=== PATIENT | male | born 1950 | race Caucasian/White ===

== ENCOUNTER 2017-07-02 14:17 | Inpatient (IN) | payer OTHER ==
[2017-07-02] MEDS ORDERED: NA CHLORIDE 0.9% 1,000 ML ONE (14:57)
--- NOTE | 2017-07-02 15:00 | RAD REPORT ---
EXAM DESCRIPTION: CT - Head Brain Wo Cont - 07/02/2017 2:47 pm CLINICAL HISTORY: Alteration of consciousness/ unresponsive COMPARISON: None TECHNIQUE: Computed axial tomography of the head was obtained. IV contrast was not requested. All CT scans are performed using dose optimization technique as appropriate and may include automated exposure control or mA/KV adjustment according to patient size. FINDINGS: An intracranial bleed is not seen . The ventricles are normal in caliber. No extra-axial fluid collection is noted. An 11 millimeter low-density area is present within the rig ht basal ganglia. Mild low-density areas within periventricular and deep white matter likely represen t ischemic changes secondary to small vessel disease Fluid within the sinuses/ mastoids is not seen. IMPRESSION: 11 millimeter low-density area within the right basal ganglia likely represents an infar ct. The age is indeterminate. MRI is recommended
[2017-07-02 15:58] LABS: Absolute Lymphocytes (CBC) 0.6 K/uL (0.7-4.9); Absolute Monocytes 1.8 K/uL (0.1-1.3); Absolute Neutrophil 11.9 K/uL (1.8-8.0); Basophils % 0.1 % (0-1.3); Hematocrit 39.9 % (39.6-49.0); Lymphocytes % 4.4 % (15.3-44.8); MCH 29.5 pg (27.0-35.0); MCV 87.9 fL (80-100); MPV 8.5 fL (7.6-11.3); Monocytes % 12.6 % (3.3-12.3); RBC Red Blood Cell Count 4.54 M/uL (4.33-5.43)
[2017-07-02 16:08] LABS: Bicarbonate 23 mEq/L (21-31); Glucose Level 156 mg/dL (65-120); Potassium 3.5 mEq/L (3.6-5.0); Sodium Level 135 mEq/L (135-145)
[2017-07-02 16:19] LABS: ALT/SGPT 66 IU/L (10-60); AST/SGOT 251 IU/L (10-42); Albumin 3.7 g/dL (3.2-5.5); Alkaline Phosphatase 75 IU/L (42-121); BUN Blood Urea Nitrogen 47 mg/dL (6-20); Bilirubin Direct 0.2 mg/dL (0-0.2); Bilirubin Total 0.9 mg/dL (0.3-1.2); Protein, Total 7.3 g/dL (6.0-8.3)
[2017-07-02 16:31] LABS: Urine Blood 3+ (NEG); Urine Glucose 2+ (NEG); Urine Protein 3+ (NEG); Urine Specific Gravity >1.030 (1.005-1.030)
[2017-07-02 16:38] LABS: Barbiturates NEGATIVE; Benzodiazepines NEGATIVE; Cocaine NEGATIVE; METHAMPHETAM NEGATIVE; Opiates NEGATIVE; Phencyclidine NEGATIVE; THC Cannibis POSITIVE
--- NOTE | 2017-07-02 17:23 | RAD REPORT ---
EXAM DESCRIPTION: MRI - Brain Wo Cont - 07/02/2017 5:17 pm CLINICAL HISTORY: CVA COMPARISON: 07/02/2017 CT head TECHNIQUE: Multi-sequence, multiplanar MR imaging of the brain was performed without contrast. FINDINGS: No intracranial hemorrhage, hydrocephalus or extra-axial fluid collections.Mild to moderat e confluent T2/FLAIR hyperintensity in the periventricular and deep white matter is present compatibl e with chronic microvascular ischemic changes. No edema or shift of midline structures. No findings t o suspect brain mass. DWI is negative for acute CVA. Midline structures are normally formed. Mastoid air cells and paranasal sinuses are clear. IMPRESSION: Negative for acute CVA or other acute intracranial process.
[2017-07-02 17:29] LABS: Alcohol Serum/Plasma < 10 mg/dl
[2017-07-02 17:32] LABS: Creatine Phosphokinase 8290 IU/L (22-269)
[2017-07-02] MEDS ORDERED: NA CHLORIDE 0.9% 2,000 ML ONE (17:41)
--- NOTE | 2017-07-02 17:42 | ER ---
Nurse's Notes [facility] Name: Carlos Joseph Age: 67 yrs Sex: Male : 1950 Arrival Date: 07/02/2017 Time: 14:18 Bed 8 Private MD: Diagnosis: Altered mental status, unspecified;Rhabdomyolysis;Dehydration;Hypoglycemia, unspecified Presentation: 07/02 14:19 Presenting complaint: EMS states: Found unresponsive in boat parked behind abandoned grocery store. BGL 35, improved to 230 after 20gm dextrose. AOx2. VS WNL. 22g RIGHT FA. Transition of care: patient was not received from another setting of care. Onset of symptoms is unknown. Care prior to arrival: Medication(s) given: Dextrose 20G IV initiated. 22 GA, in the right forearm, Glucose check 35, 230. 14:19 Method Of Arrival: EMS: [facility] 14:19 Acuity: LEONIDAS 2 hb Triage Assessment: 14:20 General: Appears in no apparent distress. ill, Behavior is drowsy, flat. Pain: Denies hb pain. EENT: No signs and/or symptoms were reported regarding the EENT system. Neuro: Level of Consciousness is obeys commands, lethargic, Oriented to person. Cardiovascular: Heart tones S1 S2 present Capillary refill < 3 seconds Patient's skin is warm and dry. Respiratory: Airway is patent Trachea midline Respiratory effort is even, unlabored, Respiratory pattern is regular, symmetrical, Breath sounds are clear bilaterally. GI: No signs and/or symptoms were reported involving the gastrointestinal system. Abdomen is non-distended, Bowel sounds present X 4 quads. Abd is soft and non tender X 4 quads. : No signs and/or symptoms were reported regarding the genitourinary system. Derm: Skin is thin, with poor turgor Skin is dry, Skin is pink, insect bites to face and extremities, sound to right hand, wound to left alvarez. Musculoskeletal: No signs and/or symptoms reported regarding the musculoskeletal system. Historical: - Allergies: 14:24 No Known Allergies; hb - Immunization history:: Adult Immunizations unknown. - Social history:: Smoking status: unknown. Screenin:29 Abuse screen: Denies threats or abuse. Denies injuries from another. Nutritional sv screening: No deficits noted. Tuberculosis screening: No symptoms or risk factors identified. Fall Risk No fall in past 12 months (0 pts). No secondary diagnosis (0 pts). IV access (20 points). Ambulatory Aid- None/Bed Rest/Nurse Assist (0 pts). Gait- Normal/Bed Rest/Wheelchair (0 pts) Mental Status- Oriented to own ability (0 pts). Total Mercedes Fall Scale indicates No Risk (0-24 pts). 21:13 The patient has not been NPO before screening. The patient is alert, able to follow bs1 commands. The patient does not exhibit slurred or garbled speech The patient is not exhibiting difficulty speaking. The patient does not exhibit difficulty understanding words. The patient is able to swallow own secretions with no drooling or need for suction. Patient tolerated one teaspoon of water. No drooling, immediate coughing, gurgling, or clearing of the throat was noted. The patient tolerated 90mL of water. No drooling, immediate coughing, gurgling, or clearing of the throat was noted. Patient was given orange juice (118)ml , patient noted to cough but was able to swallow the juice. Patient states "My mouth is so dry, I have not drank anything in over 25 hours." The patient passed the bedside swallow screening. Oral medications may be given as ordered. Contact Physician for further diet orders. Assessment: 14:30 General: see triage assessment. hb 15:30 Reassessment: Lab at bedside obtaining blood. sv 15:58 General: Appears in no apparent distress. uncomfortable, slender, Behavior is calm, sv cooperative, drowsy, Pt hallucinating. Pt seeing people coming out of the curtain talking to him.. Pain: Complains of pain in right leg and left leg Pain currently is 5 out of 10 on a pain scale. Pain began 1 day ago. Is intermittent. Neuro: Level of Consciousness is awake, alert, obeys commands, with verbal stimuli. Oriented to person, place, time, situation, Moves all extremities. Speech is normal, Facial symmetry appears normal, Reports photophobia weakness in right leg and left leg. Cardiovascular: Patient's skin is warm and dry. Respiratory: Respiratory effort is even, unlabored, Respiratory pattern is regular, symmetrical. Derm: Skin is pale. Musculoskeletal: Reports weakness in right leg and left leg. 16:15 Reassessment: Patient appears in no apparent distress at this time. Patient and/or sv family updated on plan of care and expected duration. Pain level reassessed. Pt hallucinating, stating that he keeps seeing people come in and out of his room. 17:49 Reassessment: Patient appears in no apparent distress at this time. Patient and/or sv family updated on plan of care and expected duration. Pain level reassessed. Patient is alert, oriented x 3, equal unlabored respirations, skin warm/dry/pink. Pt continues to hallucinate. Pt stated that I needed to get the ice cups that were above my head. Reoriented pt to surroundings. 18:18 Reassessment: Patient appears in no apparent distress at this time. Patient and/or sv family updated on plan of care and expected duration. Pain level reassessed. Patient is alert, oriented x 3, equal unlabored respirations, skin warm/dry/pink. 19:15 Reassessment: Patient appears in no apparent distress at this time. Patient and/or bs1 family updated on plan of care and expected duration. Pain level reassessed. Patient is alert, oriented x 3, equal unlabored respirations, skin warm/dry/pink. report received from JAE Corrigan. 20:37 Reassessment: Patient back from MRI, Nurse rechecked BG, 61, orange juice given, bs1 rechecked at 2056 came up to 97. 21:25 Reassessment: Report given to JAE Torrez. bs1 Vital Signs: 14:22 BP 144 / 69; Pulse 88; Resp 18; Temp 98; Pulse Ox 100% on R/A; Pain 0/10; hb 15:08 BP 147 / 68; Pulse 71; Resp 18; Pulse Ox 97% ; sv 16:02 BP 143 / 58; Pulse 77; Resp 19; Pulse Ox 100% on R/A; hb 17:18 BP 160 / 83; Pulse 74; Resp 17; Pulse Ox 100% on R/A; hb 18:18 BP 139 / 64; Pulse 75; Resp 20; Pulse Ox 99% ; sv 18:32 BP 139 / 82; Pulse 74; Resp 18; Pulse Ox 96% ; sv 20:30 BP 141 / 72; Pulse 69; Resp 17; Pulse Ox 95% on R/A; Pain 0/10; bs1 ED Course: 14:18 Patient arrived in ED. ss 14:19 Maintain EMS IV. Dressing intact. Site clean \\T\\ dry. Gauge \\T\\ site: 22G R FA. sv 14:22 Triage completed. hb 14:22 EKG done, by electrical tech/project manager. reviewed by Jose FINCH. at1 14:22 Arm band placed on left wrist. hb 14:25 Jose Nieto PA is PHCP. jr8 14:25 Rich Berkowitz MD is Attending Physician. jr8 14:30 raw material handler on. Pulse ox on. NIBP on. sv 14:47 CT Head Brain wo Cont In Process Unspecified. EDMS 14:51 Meenu Luna, RN is Primary Nurse. sv 15:00 Inserted saline lock: 22 gauge in left antecubital area, using aseptic technique. jb1 15:29 Patient has correct armband on for positive identification. Placed in gown. Bed in low sv position. Call light in reach. 16:37 Patient moved to MRI via stretcher. nj 17:17 MRI - Brain Wo Cont In Process Unspecified. EDMS 17:19 Patient moved back from MRI. nj 17:41 Loren Tello MD is Hospitalizing Provider. jr8 18:07 X-ray completed. Portable x-ray completed in exam room. Patient tolerated procedure ml well. 19:13 Report given to Casa ROWE and Kierra ROWE. sv 19:16 Primary Nurse role handed off by Meenu Luna, RN sv 19:25 Ultrasound completed. cy 19:26 Patient moved to MRI via stretcher. nj 19:43 Luisa Chau, JAE is Primary Nurse. bs1 21:07 No provider procedures requiring assistance completed. Patient admitted, IV remains in bs1 place. intact. Administered Medications: 15:07 Drug: NS 0.9% 1000 ml Route: IV; Rate: 1000 ml; Site: left forearm; sv 16:00 Follow up: Response: No adverse reaction; IV Status: Completed infusion; IV Intake: sv 1000ml 17:49 Follow up: Response: No adverse reaction; IV Status: Completed infusion; IV Intake: sv 1000ml 17:49 Drug: NS 0.9% 1000 ml Route: IV; Rate: 1000 ml; Site: right forearm; sv 21:08 Follow up: IV Status: Completed infusion bs1 18:30 Drug: D50W 50 ml Route: IVP; Site: right forearm; sv 18:59 Follow up: Response: No adverse reaction; Blood sugar is elevated sv 18:31 Not Given (order changed): NS 0.9% 1000 ml IV at 125 ml/hr continuous sv 19:40 Drug: D5-1/2 NS 1000 ml Route: IV; Rate: 150 ml/hr; Site: left antecubital; bs1 21:07 Follow up: IV Status: Infusion continued upon admission bs1 Point of Care Testing: Blood Glucose: 14:20 Blood Glucose: 137 mg/dL; ss 15:57 Blood Glucose: 128 mg/dL; sv 18:20 Blood Glucose: 45 mg/dL; sv 19:00 Blood Glucose: 150 mg/dL; sv Ranges: Intake: 16:00 IV: 1000ml; Total: 1000ml. sv 17:49 IV: 1000ml; Total: 2000ml. sv Output: 16:23 Urine: 200ml (Voided); Total: 200ml. sv Outcome: 17:41 Decision to Hospitalize by Provider. jr8 21:10 Condition: stable bs1 21:23 Admitted to Med/surg accompanied by tech, via stretcher, room 232, with chart, Report bs1 called to JAE Torrez 21:23 Instructed on the need for admit, Demonstrated understanding of instructions. 22:16 Patient left the ED. bs1 Signatures: Dispatcher [employer] EDMS Dylan Mcallister jb1 Meenu Luna, RN Cadence Christianson Shelby, RN RN ss Roszak, Josh, PA PA jr8 Annmarie marino, machine fancy stitcher EKG Tat1 Balbina Barahona RN RN hb Jordan, Nathan nj Salazar, Brittany RN RN bs1 Kerwin Olivier Corrections: (The following items were deleted from the chart) 14:24 14:19 Acuity: LEONIDAS 3 hb hb 17:50 15:58 General: Appears in no apparent distress. uncomfortable, slender, Behavior is sv calm, cooperative, drowsy, sv
--- NOTE | 2017-07-02 17:42 | EDPHYS ---
Physician Documentation [facility] Name: Carlos Joseph Age: 67 yrs Sex: Male : 1950 Arrival Date: 07/02/2017 Time: 14:18 Bed 8 Private MD: ED Physician Rich Berkowitz HPI: 07/02 14:47 This 67 yrs old Male presents to ER via EMS with complaints of Low Blood Sugar. jr8 14:47 The patient presents with confusion, decreased mental status, decreased responsiveness. jr8 Onset: The symptoms/episode began/occurred at an unknown time. Possible causes: low blood sugar, the patient uses insulin. Associated signs and symptoms: The patient has no apparent associated signs or symptoms. Current symptoms: In the emergency department the patient's symptoms have improved, moderately. Patient's baseline: Neuro: alert and fully oriented, Motor: no deficits, Ambulation: walks without assistance, Speech: normal. It is unknown whether or not the patient has had similar symptoms in the past. It is unknown whether or not the patient has recently seen a physician. Patient brought in by EMS for hypoglycemia. Stated that police were called out for car parked behind [employer] parking lot. Patient was found minimally responsive in his boat. Glucose was 35 on seen. Brought it up into the 200s after D50. Patient became more responsive but still not acting right per EMS. Upon arrival patient was alert to person, place, event . Historical: - Allergies: 14:24 No Known Allergies; hb - Immunization history:: Adult Immunizations unknown. - Social history:: Smoking status: unknown. ROS: 14:47 Eyes: Negative for injury, pain, redness, and discharge, ENT: Negative for injury, jr8 pain, and discharge, Neck: Negative for injury, pain, and swelling, Cardiovascular: Negative for chest pain, palpitations, and edema, Respiratory: Negative for shortness of breath, cough, wheezing, and pleuritic chest pain, Abdomen/GI: Negative for abdominal pain, nausea, vomiting, diarrhea, and constipation, Back: Negative for injury and pain, MS/Extremity: Negative for injury and deformity, Skin: Negative for injury, rash, and discoloration. 14:47 Neuro: Positive for altered mental status, Negative for seizure activity. Exam: 14:47 Head/Face: Normocephalic, atraumatic. Eyes: Pupils equal round and reactive to light, jr8 extra-ocular motions intact. Lids and lashes normal. Conjunctiva and sclera are non-icteric and not injected. Cornea within normal limits. Periorbital areas with no swelling, redness, or edema. ENT: Nares patent. No nasal discharge, no septal abnormalities noted. Tympanic membranes are normal and external auditory canals are clear. Oropharynx with no redness, swelling, or masses, exudates, or evidence of obstruction, uvula midline. Mucous membranes moist. Neck: Trachea midline, no thyromegaly or masses palpated, and no cervical lymphadenopathy. Supple, full range of motion without nuchal rigidity, or vertebral point tenderness. No Meningismus. Cardiovascular: Regular rate and rhythm with a normal S1 and S2. No gallops, murmurs, or rubs. Normal PMI, no JVD. No pulse deficits. Respiratory: Lungs have equal breath sounds bilaterally, clear to auscultation and percussion. No rales, rhonchi or wheezes noted. No increased work of breathing, no retractions or nasal flaring. Abdomen/GI: Soft, non-tender, with normal bowel sounds. No distension or tympany. No guarding or rebound. No evidence of tenderness throughout. Back: No spinal tenderness. No costovertebral tenderness. Full range of motion. MS/ Extremity: Pulses equal, no cyanosis. Neurovascular intact. Full, normal range of motion. Neuro: Awake and alert, GCS 15, oriented to person, place, time, and situation. Cranial nerves II-XII grossly intact. Motor strength 5/5 in all extremities. Sensory grossly intact. Cerebellar exam normal. Normal gait. 14:47 Constitutional: The patient appears alert, awake, unkempt. 14:47 Skin: Patient has healing wounds to right hand and left leg. Insect bites noted around forehead and top of head. Vital Signs: 14:22 BP 144 / 69; Pulse 88; Resp 18; Temp 98; Pulse Ox 100% on R/A; Pain 0/10; hb 15:08 BP 147 / 68; Pulse 71; Resp 18; Pulse Ox 97% ; sv 16:02 BP 143 / 58; Pulse 77; Resp 19; Pulse Ox 100% on R/A; hb 17:18 BP 160 / 83; Pulse 74; Resp 17; Pulse Ox 100% on R/A; hb 18:18 BP 139 / 64; Pulse 75; Resp 20; Pulse Ox 99% ; sv 18:32 BP 139 / 82; Pulse 74; Resp 18; Pulse Ox 96% ; sv 20:30 BP 141 / 72; Pulse 69; Resp 17; Pulse Ox 95% on R/A; Pain 0/10; bs1 MDM: 14:25 Patient medically screened. [facility] 17:40 Data reviewed: vital signs, nurses notes, lab test result(s), EKG, radiologic studies, [facility] CT scan, plain films, and as a result, I will admit patient. Data interpreted: Pulse oximetry: on room air is 100 %. Interpretation: normal. Counseling: I had a detailed discussion with the patient and/or guardian regarding: the historical points, exam findings, and any diagnostic results supporting the discharge/admit diagnosis, lab results, radiology results, the need for further work-up and treatment in the hospital. Physician consultation: Loren Tello MD was called at 17:41, was contacted at 17:41, regarding admission, to the telemetry unit. consult, patient's condition, and will see patient. 07/02 14:20 Order name: glucometer results - FOR PT WITH NO ID; Complete Time: 19:32 ss 07/02 14:25 Order name: Basic Metabolic Panel; Complete Time: 17:34 [facility] 07/02 14:25 Order name: CBC with Diff; Complete Time: 16:58 [facility] 07/02 14:25 Order name: ETOH Level; Complete Time: 17:34 [facility] 07/02 14:25 Order name: Hepatic Function; Complete Time: 17:34 [facility] 07/02 14:25 Order name: Urine Drug Screen; Complete Time: 17:48 [facility] 07/02 14:25 Order name: CK; Complete Time: 17:34 [facility] 07/02 16:05 Order name: Urine Dipstick--Ancillary (enter results); Complete Time: 16:58 ag 07/02 17:51 Order name: Blood Culture [facility] 07/02 17:51 Order name: Thyroid Stimulating Hormone; Complete Time: 19:18 [facility] 07/02 17:51 Order name: Urinalysis [facility] 07/02 17:51 Order name: CBC with Automated Diff [facility] 07/02 17:51 Order name: CBC with Automated Diff [facility] 07/02 17:51 Order name: CBC with Automated Diff [facility] 07/02 17:51 Order name: CBC with Automated Diff [facility] 07/02 17:51 Order name: CKMB Creatine Kinase MB [facility] 07/02 17:51 Order name: CKMB Creatine Kinase MB [facility] 07/02 17:51 Order name: CKMB Creatine Kinase MB [facility] 07/02 17:51 Order name: CKMB Creatine Kinase MB [facility] 07/02 17:51 Order name: Comprehensive Metabolic Panel [facility] 07/02 17:51 Order name: Comprehensive Metabolic Panel [facility] 07/02 17:51 Order name: Comprehensive Metabolic Panel [facility] 07/02 17:51 Order name: Comprehensive Metabolic Panel [facility] 07/02 17:51 Order name: Creatine Phosphokinase [facility] 07/02 17:51 Order name: Creatine Phosphokinase [facility] 07/02 17:51 Order name: Creatine Phosphokinase [facility] 07/02 17:52 Order name: Creatine Phosphokinase [facility] 07/02 17:52 Order name: Magnesium [facility] 07/02 17:52 Order name: Magnesium [facility] 07/02 17:52 Order name: Magnesium [facility] 07/02 14:25 Order name: EKG; Complete Time: 14:26 [facility] 07/02 14:25 Order name: EKG - Nurse/Tech; Complete Time: 14:33 [facility] 07/02 14:25 Order name: IV Saline Lock; Complete Time: 15:07 [facility] 07/02 14:25 Order name: Labs collected and sent; Complete Time: 18:19 [facility] 07/02 14:26 Order name: CT Head Brain wo Cont; Complete Time: 15:17 [facility] 07/02 15:28 Order name: Diet Regular; Complete Time: 15:28 07/02 16:03 Order name: MRI - Brain Wo Cont; Complete Time: 17:25 [facility] 07/02 17:39 Order name: XRAY Chest (1 view) [facility] 07/02 17:51 Order name: Carotid Artery Bilateral; Complete Time: 20:00 [facility] 07/02 17:51 Order name: CONS Physician Consult [facility] 07/02 17:51 Order name: Echo with Doppler [facility] 07/02 17:51 Order name: Physical Therapy Consult [facility] 07/02 17:51 Order name: Speech Therapy Consult [facility] 07/02 17:52 Order name: Magnesium EDMS 07/02 17:52 Order name: Phosphorus EDMS 07/02 17:52 Order name: Phosphorus EDMS 07/02 17:52 Order name: Phosphorus EDMS 07/02 17:52 Order name: Phosphorus EDMS 07/02 17:52 Order name: Stroke Protocol ED[facility] 07/02 17:52 Order name: Stroke Protocol EDMS 07/02 18:34 Order name: RAD; Complete Time: 18:35 EDMS 07/02 18:39 Order name: Glucose, Ancillary Testing; Complete Time: 18:41 EDMS 07/02 18:39 Order name: Glucose, Ancillary Testing; Complete Time: 18:41 EDMS 07/02 20:30 Order name: MRI; Complete Time: 21:14 EDMS 07/02 20:40 Order name: Glucose, Ancillary Testing; Complete Time: 21:14 EDMS 07/02 20:40 Order name: Glucose, Ancillary Testing; Complete Time: 21:14 EDMS 07/02 22:03 Order name: Glucose, Ancillary Testing; Complete Time: 22:06 EDMS 07/02 14:25 Order name: Urine Dipstick-Ancillary (obtain specimen); Complete Time: 18:34 jr8 Administered Medications: 15:07 Drug: NS 0.9% 1000 ml Route: IV; Rate: 1000 ml; Site: left forearm; sv 16:00 Follow up: Response: No adverse reaction; IV Status: Completed infusion; IV Intake: sv 1000ml 17:49 Follow up: Response: No adverse reaction; IV Status: Completed infusion; IV Intake: sv 1000ml 17:49 Drug: NS 0.9% 1000 ml Route: IV; Rate: 1000 ml; Site: right forearm; sv 21:08 Follow up: IV Status: Completed infusion bs1 18:30 Drug: D50W 50 ml Route: IVP; Site: right forearm; sv 18:59 Follow up: Response: No adverse reaction; Blood sugar is elevated sv 18:31 Not Given (order changed): NS 0.9% 1000 ml IV at 125 ml/hr continuous sv 19:40 Drug: D5-1/2 NS 1000 ml Route: IV; Rate: 150 ml/hr; Site: left antecubital; bs1 21:07 Follow up: IV Status: Infusion continued upon admission bs1 Point of Care Testing: Blood Glucose: 14:20 Blood Glucose: 137 mg/dL; ss 15:57 Blood Glucose: 128 mg/dL; sv 18:20 Blood Glucose: 45 mg/dL; sv 19:00 Blood Glucose: 150 mg/dL; sv Ranges: Critical Glucose Levels:Adult <50 mg/dl or >400 mg/dl <40 mg/dl or >180 mg/dl Disposition: 07/02/17 17:41 Hospitalization ordered by Loren Tello for Inpatient Admission. Preliminary diagnosis are Altered mental status, unspecified, Rhabdomyolysis, Dehydration, Hypoglycemia, unspecified. - Bed requested for Telemetry/MedSurg (Inpatient). - Status is Inpatient Admission. bs1 - Condition is Stable. - Problem is new. - Symptoms have improved. UTI on Admission? No Addendum: 07/04/2017 07:46 Co-signature as Attending Physician, Rich Berkowitz MD I agree with the assessment and w a plan of care. Signatures: Dispatcher [employer] Meenu Yap RN RN sv Roszak, Josh, PA PA 8 Shilpi Green Heather, RN RN Rich Berkowitz MD MD ct Luisa Chau RN RN bs1
[2017-07-02] MEDS ORDERED: ONDANSETRON 4 MG (ODT) TAB PO PRN (17:45)
[2017-07-02] MEDS ORDERED: GLUCAGON 1 MG/VIAL IM PRN (17:49)
[2017-07-02] MEDS ORDERED: D50W 25 GM/50 ML SYRINGE IV PRN (17:49)
--- NOTE | 2017-07-02 17:58 | P.HP ---
Certification for Inpatient Patient admitted to: Inpatient With expected LOS: >2 Midnights Patient will require the following post-hospital care: None Practitioner: I am a practitioner with admitting privileges, knowledge of patient current condition, hospital course, and medical plan of care. Services: Services provided to patient in accordance with Admission requirements found in Title 42 Section 412.3 of the Code of Federal Regulations Patient History Date of Service: 07/03/17 Primary Care Provider: None Reason for admission: Unresponsiveness History of Present Illness: This is a 67-year-old male with significant past medical history of hypertension and diabetes along with at least who came to the hospital after being found unresponsive in the back of the boat at the [facility] Parking lot. . The patient was found to have confusion, decreased mental status, decreased responsiveness. along with low BS at the Site by EMS. Pt received a dose of D50 and had his BS up to 200's. Patient became more responsive but still not acting right per EMS. Upon arrival patient was alert to person, place, event . However has no recall of the event. pt was worried about her dog and wanted to make sure he is okay. No other c/o. Denies having fever, chills, Nausea or vomiting. + for drug abuse and occ alcohol. No smoking. Allergies No Known Allergies Allergy (Verified 07/02/17 22:34) Home Medications: Atorvastatin Calcium [Lipitor] 80 mg PO BEDTIME 07/02/17 Gabapentin [Neurontin*] 1 tab PO DAILY 07/02/17 Insulin Lispro [Humalog] 30 units SQ BID 07/02/17 Tamsulosin HCl [Tamsulosin HCl] 1 tab PO DAILY 07/02/17 traMADol HCL [Ultram*] 1 tab PO BID PRN 07/02/17 - Past Medical/Surgical History -: DM type 2 - Family History Mother -: Cancer Review of Systems General: As per HPI Physical Examination - Physical Exam General: Alert, In no apparent distress, Oriented x2, Other (Intermittent COnfusion ) HEENT: Atraumatic Neck: Supple Respiratory: Clear to auscultation bilaterally, Normal air movement Cardiovascular: Regular rate/rhythm, Normal S1 S2 Gastrointestinal: Normal bowel sounds, No tenderness Musculoskeletal: No tenderness Integumentary: No rashes Neurological: Normal tone, Sensation intact, Cranial nerves 3-12 intact, Abnormal speech, Abnormal strength Lymphatics: No axilla or inguinal lymphadenopathy - Studies Laboratory Data (last 24 hrs) 07/02/17 15:17: WBC 14.3 H, Hgb 13.4 L, Hct 39.9, Plt Count 294 07/02/17 15:17: Sodium 135, Potassium 3.5 L, BUN 47 H, Creatinine 0.87, Glucose 156 H, Total Bilirubin 0.9, AST 251 H, ALT 66 H, Alkaline Phosphatase 75 Assessment and Plan - Problems (Diagnosis) (1) Altered mental status Onset Date: 07/03/17 Current Visit: Yes Status: Resolved Plan: unresponsiveness. Now Alert with Intermittent confusion. Most likely 2/2 to heat stroke vs CVA vs Drug abuse -IV fluids -Neurology consulted. -MRI ordered for jesus AM Qualifiers: Altered mental status type: somnolence Qualified Code(s): R40.0 - Somnolence (2) Stroke Onset Date: 07/03/17 Current Visit: Yes Status: Ruled-out Plan: Unresponsive and AMS in the boat. Now responsive with intermittent confusion. Most likely 2.2 heat stroke vs drug abuse vs CVA -Head CT with 11mm Right Basal Infarct. MRI negative. -Neurology Consulted. Appreciated Reccs -PT/OT consulted -ASA and Statin -ECHO and Carotid Pending. Qualifiers: CVA mechanism: unspecified Qualified Code(s): I63.9 - Cerebral infarction, unspecified (3) Hypoglycemia Onset Date: 07/03/17 Current Visit: Yes Status: Acute Plan: Was found to have BS of 32. Pt is diabetic. Was given D50 in the field -Now BS > 100 -Placed on ISS for Diabetes (4) Rhabdomyolysis Onset Date: 07/03/17 Current Visit: Yes Status: Acute Plan: Most likely from Dehydration and Heat Stroke -CK elevated -IV fluids and Cardiac Monitoring. -Repeat CK in the AM -Avoid Nephrotoxic agents at this time. Qualifiers: Rhabdomyolysis type: non-traumatic Qualified Code(s): M62.82 - Rhabdomyolysis (5) Diabetes Onset Date: 07/03/17 Current Visit: Yes Status: Chronic Qualifiers: Diabetes mellitus type: type 2 Diabetes mellitus long term care pharmacist insulin use: without senior living use Diabetes mellitus complication status: without complication Qualified Code(s): E11.9 - Type 2 diabetes mellitus without complications Discharge Plan: Home Plan to discharge in: 48 Hours - Advance Directives Does patient have a Living Will: No Does patient have a Durable POA for Healthcare: No - Code Status/Comfort Care Code Status Assessed: Yes Critical Care: No
[2017-07-02] MEDS ORDERED: NA CHLORIDE 0.9% 1,000 ML IV SCH (18:00)
[2017-07-02] MEDS ORDERED: D5 0.45 NS 1,000 ML IV ONE (18:24)
[2017-07-02] MEDS ORDERED: D50W 25 GM/50 ML SYRINGE IV ONE (18:24)
--- NOTE | 2017-07-02 18:34 | RAD REPORT ---
EXAM DESCRIPTION: Tim Single View07/02/2017 6:09 pm CLINICAL HISTORY: cough COMPARISON: none FINDINGS: The lungs appear clear of acute infiltrate. The heart is normal size IMPRESSION: No acute abnormalities displayed
--- NOTE | 2017-07-02 19:30 | EKG ---
Test Date: 2017-07-02 Test Time: 14:14:02 Agricultural Extension Agent: GLADIS MEASUREMENT RESULTS: Intervals: Rate: 76 GA: 138 QRSD: 68 QT: 404 QTc: 454 [place]: P: 79 GA: 138 QRS: 74 T: 78 INTERPRETIVE STATEMENTS: Normal sinus rhythm Normal ECG No previous ECG available for comparison Electronically Signed On 07-02-17 19:29:30 CDT by Himanshu Dow
--- NOTE | 2017-07-02 19:42 | RAD REPORT ---
EXAM DESCRIPTION: VASCarotid Artery Bilateral07/02/2017 7:25 pm CLINICAL HISTORY: Syncope COMPARISON: None FINDINGS: The velocity of the right internal carotid artery equals 120 cm/sec. The right ICA/CCA rat io 1.2 The velocity of the left internal carotid artery equals 104 cm/sec. The left ICA/CCA ratio 0.7 Mild to moderate plaque is present within the carotid arteries. The vertebral arteries demonstrate antegrade flow IMPRESSION: Mild to moderate plaque within the carotid arteries without evidence of a hemodynamicall y significant stenosis
--- NOTE | 2017-07-02 20:30 | RAD REPORT ---
EXAM DESCRIPTION: MRI - Stroke Protocol - 07/02/2017 8:13 pm CLINICAL HISTORY: Syncope/CVA COMPARISON: MRI brain July 02, 2017 TECHNIQUE: Axial, sagittal and coronal magnetic resonance images of the brain were obtained. 13 cc M ultiHance was administered. Magnetic resonance angiography of the head and neck was performed. Source images were reviewed and reconstructed at 360 degrees rotation. FINDINGS: Abnormal signal within right basal ganglia extending into the right periventricular white matter is compatible with an old infarct. Diffusion weighted/ ADC mapping does not reveal evidence of an acute infarction. No abnormal enhancem ent within the brain is seen. The ventricles are normal caliber. An extra-axial fluid collection is n ot noted. Mild signal within periventricular, deep and subcortical white matter represent ischemic ch anges secondary to small vessel disease. Mild sinusitis is present. The mastoids are clear. Mild to moderate plaque is present within the left carotid bulb. Mild plaque is present within the ri ght carotid bulb. The common carotid arteries are unremarkable. Mild narrowing of the proximal tab card press operator al carotid arteries is seen. The vertebral arteries are unremarkable. The visualized anterior cerebral, middle cerebral, posterior cerebral, basilar and distal internal c arotid arteries do not demonstrate a significant stenosis. An aneurysm is not seen IMPRESSION: Old right basal ganglia infarct extending into right periventricular white matter An acute infarction is not seen Mild to moderate plaque within the left carotid bulb Unremarkable MRA head
[2017-07-02] MEDS: INSULIN -REGULAR HUMAN 50 UNIT/0.5 ML ML SQ SCH (21:00)
[2017-07-02] MEDS ORDERED: ATORVASTATIN 40 MG TAB PO SCH (21:00)
[2017-07-02] MEDS: D5 0.9 NS 1,000 ML IV SCH (21:58)
[2017-07-03 02:45] LABS: Urine Appearance CLEAR; Urine Bilirubin NEGATIVE (NEG); Urine Blood 3+ (NEG); Urine Color DK YELLOW; Urine Glucose 1+ (NEG); Urine Protein 2+ (NEG); Urine Specific Gravity >=1.030 (1.005-1.030); Urine pH 5.5 (5.0-7.0)
[2017-07-03 02:57] LABS: Urine Microscopic Reflex ORDER UMIC
[2017-07-03 03:19] LABS: Urine Bacteria <20 /HPF (NONE SEEN); Urine Culture Reflex Order NOT NEEDED; Urine RBC <5 /HPF (NONE SEEN)
[2017-07-03] MEDS: D5 0.9 NS 1,000 ML IV SCH (05:09)
[2017-07-03 05:47] LABS: Absolute Lymphocytes (CBC) 2.1 K/uL (0.7-4.9); Absolute Monocytes 1.5 K/uL (0.1-1.3); Absolute Neutrophil 6.9 K/uL (1.8-8.0); Basophils % 0.8 % (0-1.3); Eosinophils % 0.3 % (0-4.4); Hematocrit 36.3 % (39.6-49.0); Lymphocytes % 19.5 % (15.3-44.8); MCH 29.3 pg (27.0-35.0); MCV 87.7 fL (80-100); MPV 8.8 fL (7.6-11.3); Monocytes % 14.1 % (3.3-12.3); RBC Red Blood Cell Count 4.14 M/uL (4.33-5.43)
[2017-07-03 05:48] LABS: ALT/SGPT 81 IU/L (10-60); AST/SGOT 298 IU/L (10-42); Albumin 2.9 g/dL (3.2-5.5); Alkaline Phosphatase 64 IU/L (42-121); BUN Blood Urea Nitrogen 31 mg/dL (6-20); Bicarbonate 19 mEq/L (21-31); Bilirubin Total 0.8 mg/dL (0.3-1.2); Glucose Level 137 mg/dL (65-120); Magnesium 1.9 mg/dL (1.8-2.5); Phosphorus 1.7 mg/dL (2.5-4.3); Sodium Level 135 mEq/L (135-145)
[2017-07-03 06:08] LABS: CKMB Creatine Kinase MB 54.9 ng/ml (0.3-4.0); Creatine Phosphokinase 10330 IU/L (22-269)
[2017-07-03] MEDS: INSULIN -REGULAR HUMAN 50 UNIT/0.5 ML ML SQ SCH ×4 (07:30→21:00)
[2017-07-03] MEDS: ACETAMINOPHEN 500 MG TAB PO PRN ×2 (09:37→23:42)
[2017-07-03] MEDS: ASPIRIN 81 MG CHEWABLE TABLET PO SCH (09:38)
[2017-07-03] MEDS: D5W 1,000 ML with NA BICARB 8.4% 50 MEQ IV SCH ×6 (09:39→21:13)
--- NOTE | 2017-07-03 15:56 | P.PN ---
Subjective Date of Service: 07/03/17 Primary Care Provider: None Chief Complaint: Unresponsiveness Patient seen and examined at bedside with RN. Chart reviewed. Currently patient is doing well. Has trouble speaking because he has lost his voice. Patient states that he is really worried about his dog and wants to call the police department for that. Overall patient states that he does not have any chest pain nausea vomiting or any other symptoms at this time Review of Systems 10-point ROS is otherwise unremarkable Physical Examination - Vital Signs Temperature: 98.6 F Blood Pressure: 143/68 Pulse: 72 Respirations: 18 Pulse Ox (%): 97 - Physical Exam General: Alert, In no apparent distress, Oriented x3 HEENT: Atraumatic, PERRLA, EOMI Neck: Supple, JVD not distended Respiratory: Clear to auscultation bilaterally, Normal air movement Cardiovascular: Regular rate/rhythm, Normal S1 S2 Gastrointestinal: Normal bowel sounds, Soft and benign, Non-distended, No tenderness Musculoskeletal: No tenderness Integumentary: No rashes Neurological: Normal speech, Normal tone, Normal affect Lymphatics: No axilla or inguinal lymphadenopathy - Studies Laboratory Data (last 24 hrs) 07/02/17 15:17: WBC 14.3 H, Hgb 13.4 L, Hct 39.9, Plt Count 294 07/02/17 15:17: Sodium 135, Potassium 3.5 L, BUN 47 H, Creatinine 0.87, Glucose 156 H, Total Bilirubin 0.9, AST 251 H, ALT 66 H, Alkaline Phosphatase 75 Medications List Reviewed: Yes Assessment & Plan - Problems (Diagnosis) (1) Rhabdomyolysis Onset Date: 07/03/17 Current Visit: Yes Status: Acute Plan: Most likely from Dehydration and Heat Stroke -CK elevated more today -IV fluids and Cardiac Monitoring. -Repeat CK in the AM -Avoid Nephrotoxic agents at this time. Qualifiers: Rhabdomyolysis type: non-traumatic Qualified Code(s): M62.82 - Rhabdomyolysis (2) Altered mental status Onset Date: 07/03/17 Current Visit: Yes Status: Resolved Plan: Most likely 2/2 to heat stroke vs CVA vs Drug abuse. Improved now. -Neurology consulted. Awaiting Reccs -MRI with Old changes. No acute abnormality. Qualifiers: Altered mental status type: somnolence Qualified Code(s): R40.0 - Somnolence (3) Stroke Onset Date: 07/03/17 Current Visit: Yes Status: Ruled-out Plan: Unresponsive and AMS in the boat. Now responsive with intermittent confusion. Most likely 2.2 heat stroke vs drug abuse vs CVA -Head CT with 11mm Right Basal Infarct. MRI negative with only chronic changes. . -Neurology Consulted. Awaiting Reccs -PT/OT consulted -ASA and Statin -ECHO and Carotid WNL. Qualifiers: CVA mechanism: unspecified Qualified Code(s): I63.9 - Cerebral infarction, unspecified (4) Hypoglycemia Onset Date: 07/03/17 Current Visit: Yes Status: Acute Plan: Was found to have BS of 32. Pt is diabetic. Was given D50 in the field -Now BS > 100 -Placed on ISS for Diabetes (5) Diabetes Onset Date: 07/03/17 Current Visit: Yes Status: Chronic Qualifiers: Diabetes mellitus type: type 2 Diabetes mellitus fci insulin use: without fci use Diabetes mellitus complication status: without complication Qualified Code(s): E11.9 - Type 2 diabetes mellitus without complications
--- NOTE | 2017-07-03 16:22 | ECHO ---
HEIGHT: 5 ft 10 in WEIGHT: 128 lb 9.6 oz DATE OF STUDY: 07/03/[address]: Loren Tello MD 2-DIMENSIONAL: YES M.MODE: YES DOPPLER: YES COLOR FLOW: YES TDS: NO PORTABLE: NO DEFINITY: NO BUBBLE STUDY: NO DIAGNOSIS: SYNCOPE CARDIAC HISTORY: CATHERIZATION: NO SURGERY: NO PROSTHETIC VALVE: NO PACEMAKER: NO MEASUREMENTS (cm) DIASTOLIC (NORMALS) SYSTOLIC (NORMALS) IVSd 1.0 (0.6-1.2) LA Diam 2.9 (1.9-4.0) LVEF 67% LVIDd 3.7 (3.5-5.7) LVIDs 2.3 (2.0-3.5) %FS 37% LVPWd 1.0 (0.6-1.2) Ao Diam 3.2 (2.0-3.7) 2 DIMENSIONAL ASSESSMENT: RIGHT ATRIUM: NORMAL LEFT ATRIUM: NORMAL RIGHT VENTRICLE: NORMAL LEFT VENTRICLE: NORMAL TRICUSPID VALVE: NORMAL MITRAL VALVE: NORMAL PULMONIC VALVE: NORMAL AORTIC VALVE: NORMAL PERICARDIAL EFFUSION: NONE AORTIC ROOT: NORMAL LEFT VENTRICULAR WALL MOTION: NORMAL. DOPPLER/COLOR FLOW: NORMAL. COMMENTS: NORMAL LEFT VENTRICULAR SIZE AND FUNCTION. NO WALL MOTION ABNORMALITY. NO EFFUSION. TECHNOLOGIST: MEGAN SORENSEN
[2017-07-04] MEDS: D5W 1,000 ML with NA BICARB 8.4% 50 MEQ IV SCH ×6 (03:24→18:27)
[2017-07-04 05:17] LABS: Absolute Lymphocytes (CBC) 2.7 K/uL (0.7-4.9); Absolute Monocytes 1.3 K/uL (0.1-1.3); Absolute Neutrophil 5.3 K/uL (1.8-8.0); Basophils % 1.4 % (0-1.3); Eosinophils % 2.3 % (0-4.4); Hematocrit 34.1 % (39.6-49.0); Lymphocytes % 27.8 % (15.3-44.8); MCH 29.3 pg (27.0-35.0); MPV 8.9 fL (7.6-11.3); Monocytes % 13.5 % (3.3-12.3); RBC Red Blood Cell Count 3.88 M/uL (4.33-5.43)
[2017-07-04 05:45] LABS: ALT/SGPT 70 IU/L (10-60); AST/SGOT 176 IU/L (10-42); Albumin 2.6 g/dL (3.2-5.5); Alkaline Phosphatase 60 IU/L (42-121); BUN Blood Urea Nitrogen 15 mg/dL (6-20); Bicarbonate 24 mEq/L (21-31); Bilirubin Total 0.6 mg/dL (0.3-1.2); Glucose Level 206 mg/dL (65-120); Magnesium 1.7 mg/dL (1.8-2.5); Phosphorus 1.7 mg/dL (2.5-4.3); Potassium 3.8 mEq/L (3.6-5.0); Protein, Total 5.6 g/dL (6.0-8.3); Sodium Level 132 mEq/L (135-145)
[2017-07-04 05:46] LABS: Creatine Phosphokinase 3612 IU/L (22-269)
[2017-07-04] MEDS: INSULIN -REGULAR HUMAN 50 UNIT/0.5 ML ML SQ SCH ×4 (07:30→21:42)
[2017-07-04] MEDS: GABAPENTIN 300 MG CAP PO SCH (09:00)
[2017-07-04] MEDS: ASPIRIN 81 MG CHEWABLE TABLET PO SCH (09:00)
[2017-07-04] MEDS: TAMSULOSIN 0.4 MG SR CAP PO SCH (09:00)
--- NOTE | 2017-07-04 12:44 | RAD REPORT ---
EXAM DESCRIPTION: RAD - Barium Swallow Modified - 07/04/2017 12:35 pm CLINICAL HISTORY: Aspiration. COMPARISON: None. TECHNIQUE: The patient was given liquid, semi-solid and solid forms of barium. Lateral view fluorosc opic imaging was performed in conjunction with [facility]. FINDINGS: Laryngeal penetration cleared thin. Mild pharyngeal residue: vallecular pyriform pudding. Delayed swallow reflex.
--- NOTE | 2017-07-04 17:06 | P.PN ---
Subjective Date of Service: 07/04/17 Primary Care Provider: None Chief Complaint: Unresponsiveness Patient seen and examined at bedside with RN. Chart reviewed. Currently patient is doing well. Has trouble speaking because he has lost his voice. Currently C/o Of dizzyness and weakness. Worked with PT and states he got dizzy and thus could not work with them. Review of Systems General: As per HPI Physical Examination - Vital Signs Temperature: 98.8 F Blood Pressure: 125/65 Pulse: 60 Respirations: 20 Pulse Ox (%): 100 - Physical Exam General: Alert, In no apparent distress, Oriented x3 HEENT: Atraumatic, PERRLA, EOMI Neck: Supple, JVD not distended Respiratory: Clear to auscultation bilaterally, Normal air movement Cardiovascular: Regular rate/rhythm, Normal S1 S2 Gastrointestinal: Normal bowel sounds, No tenderness Musculoskeletal: No tenderness Integumentary: No rashes Neurological: Normal speech, Normal tone, Normal affect, Abnormal strength Lymphatics: No axilla or inguinal lymphadenopathy - Studies Medications List Reviewed: Yes Assessment & Plan - Problems (Diagnosis) (1) Altered mental status Onset Date: 07/03/17 Current Visit: Yes Status: Resolved Plan: Now Alert and oriented x 3. Most likely 2/2 to heat stroke vs CVA vs Drug abuse -IV fluids -Neurology consulted. appreciated reccs -MRI negative for acute abnormality -ECHO and carotid negative as well. Qualifiers: Altered mental status type: somnolence Qualified Code(s): R40.0 - Somnolence (2) Stroke Onset Date: 07/03/17 Current Visit: Yes Status: Ruled-out Plan: Admitted with AMS. Now AAOx 3 -Head CT with 11mm Right Basal Infarct. MRI negative. -Neurology Consulted. Appreciated Reccs -PT/OT consulted -ASA and Statin -ECHO and Carotid negative thus far. Qualifiers: CVA mechanism: unspecified Qualified Code(s): I63.9 - Cerebral infarction, unspecified (3) Hypoglycemia Onset Date: 07/03/17 Current Visit: Yes Status: Acute Plan: Was found to have BS of 32. Pt is diabetic. Was given D50 in the field -Now BS > 100 -Placed on ISS for Diabetes (4) Rhabdomyolysis Onset Date: 07/03/17 Current Visit: Yes Status: Acute Plan: Most likely from Dehydration and Heat Stroke -CK improved today -IV fluids and Cardiac Monitoring. -Repeat CK in the AM -Avoid Nephrotoxic agents at this time. Qualifiers: Rhabdomyolysis type: non-traumatic Qualified Code(s): M62.82 - Rhabdomyolysis (5) Diabetes Onset Date: 07/03/17 Current Visit: Yes Status: Chronic Qualifiers: Diabetes mellitus type: type 2 Diabetes mellitus mcc insulin use: without mcc use Diabetes mellitus complication status: without complication Qualified Code(s): E11.9 - Type 2 diabetes mellitus without complications (6) Generalized weakness Current Visit: Yes Status: Acute Plan: Generalized weakness with dizziness. -Orthostatic hypotension -PT/OT consulted. Will hold his BP meds if needed Discharge Plan: Home Plan to discharge in: 24 Hours - Code Status/Comfort Care Code Status Assessed: Yes Critical Care: No
--- NOTE | 2017-07-04 20:50 | CON ---
Reason For Consultation: Consultation called because of altered mental status. History Of Present Illness: Mr. Josehp is a 67-year-old, patient with hypertension, diabet es, who reportedly was found poorly responsive at the back of a boat that was a rental parking lot. His responses level did improve after the emergency medical services were contacted and blood sugar w as found to be low and he received D50. He was brought at the [facility] where his head CT scan suggested a possibility of an 11 mm low-density area in the right basal ganglia, which likely re presented infarct. However, the patient subsequently had a brain MRI, this study showed no acute isc hemic or hemorrhagic change and was negative for a stroke. His blood work, however, did reveal signi ficant abnormalities with elevated white blood cell count of 14.3 with 82.9% neutrophils. His chest x-ray was clear. His urine drug screen was positive for tetrahydrocannabinol and creatine kinase lev el was elevated to 10,330 with elevated AST 298, an elevated CK-MB to 54.9, consistent with a rhabdom yolysis. It is not clear if the patient was down for an extended period of time or if he had any spe cific injury. He did mention that he at 1 point was in his sister's house where drugs were being use d including cocaine, marijuana, and amphetamines, and he was exposed to the marijuana through that . Since his admission, he has had a barium swallow study which showed that he did not have aspiration o f different consistencies, despite delayed swallowing reflex. His echocardiogram showed ejection fra ction of 67% and was a normal study and is electrocardiogram showed normal sinus rhythm and is also a normal study. Past Medical History: As indicated in addition to peripheral neuropathy. Allergies: NO KNOWN DRUG ALLERGIES. Home Medications: Lipitor 80 mg daily, Neurontin 1 tablet daily, Humalog 30 units subcutaneously twi ce daily, Flomax 0.4 mg daily, Ultram 50 mg twice daily. Family History: Positive for cancer in the mother. Review of Systems: The patient denies any recent fevers, chills, nausea, or vomiting. No myalgias or arthralgias. Physical Examination: Vital Signs: Blood pressure 126/65, pulse 60, respiratory rate 16, temperature 98.8, oxygen saturati on 95% room air. Weight 128 pounds, height 5 feet 10 inches, BMI 1.73. General: Mr. Joseph is resting in his chair beside his bed. He is in no acute distress. He is norm ocephalic and atraumatic. His sclera appear anicteric. He does have a one slight bruise on the righ t knee. Otherwise, atraumatic. Oropharynx pink and moist. Neck: Supple. Chest: Clear. Heart: Regular. Neurologic: He is alert and oriented to situation, person, along with the hospital, month, not to th e exact date. He does follow all commands appropriately. Cranial nerves show no deficits on 2 throu gh 12. Motor in the upper and lower extremities show no deficits proximally and distally. Sensory e xam shows stocking-glove loss to light touch temperature. Reflexes are depressed in the upper and lo wer extremities. In terms of gait, the patient while has the strength to ambulate appears to show po or balance and coordination. His gait does appear to be functional. Assessment: Mr. Joseph is a 67-year-old patient with rhabdomyolysis that is resolving along with uri ne drug screen being positive for marijuana and a resolving altered mental status. He has no evidenc e of stroke on brain MRI and neurologic examination. Plan: 1.He should continue with hydration to improve his rhabdomyolysis. 2.It is okay for him to go home on aspirin 81 mg daily for stroke risk reduction. 3.Okay to continue with gabapentin. He is currently 300 mg daily for his neuropathy symptoms relate d to diabetes, and he should continue with management of blood sugars according to evaluation with bl ood glucose check a.c. and at bedtime and maintain daily checks prior to administration of insulin. Follow-up: He may follow up with his primary care physician on discharge. No need to follow up with Dr. Cortez in clinic. JHONY/YVETTE Voice ID: [id number] Report ID: [id number]
[2017-07-04] MEDS: GLUCERNA SHAKE 237 ML CAN PO SCH (21:42)
[2017-07-05] MEDS: D5W 1,000 ML with NA BICARB 8.4% 50 MEQ IV SCH ×4 (01:29→08:00)
[2017-07-05 05:12] LABS: Absolute Lymphocytes (CBC) 1.8 K/uL (0.7-4.9); Absolute Monocytes 1.3 K/uL (0.1-1.3); Absolute Neutrophil 5.7 K/uL (1.8-8.0); Basophils % 0.6 % (0-1.3); Eosinophils % 1.4 % (0-4.4); Hematocrit 33.9 % (39.6-49.0); MCH 29.4 pg (27.0-35.0); MCV 86.3 fL (80-100); MPV 8.3 fL (7.6-11.3); Monocytes % 14.4 % (3.3-12.3); RBC Red Blood Cell Count 3.93 M/uL (4.33-5.43)
[2017-07-05 05:44] LABS: ALT/SGPT 66 IU/L (10-60); AST/SGOT 105 IU/L (10-42); Albumin 2.6 g/dL (3.2-5.5); Alkaline Phosphatase 70 IU/L (42-121); BUN Blood Urea Nitrogen 12 mg/dL (6-20); Bicarbonate 27 mEq/L (21-31); Bilirubin Total 0.7 mg/dL (0.3-1.2); CKMB Creatine Kinase MB 2.3 ng/ml (0.3-4.0); Glucose Level 194 mg/dL (65-120); Magnesium 1.7 mg/dL (1.8-2.5); Phosphorus 2.3 mg/dL (2.5-4.3); Potassium 3.6 mEq/L (3.6-5.0); Protein, Total 5.5 g/dL (6.0-8.3); Sodium Level 134 mEq/L (135-145)
[2017-07-05 05:46] LABS: Creatine Phosphokinase 1612 IU/L (22-269)
[2017-07-05] MEDS: INSULIN -REGULAR HUMAN 50 UNIT/0.5 ML ML SQ SCH ×4 (07:30→20:41)
[2017-07-05] MEDS: ASPIRIN 81 MG CHEWABLE TABLET PO SCH (08:57)
[2017-07-05] MEDS: GABAPENTIN 300 MG CAP PO SCH (08:57)
[2017-07-05] MEDS: TAMSULOSIN 0.4 MG SR CAP PO SCH (08:57)
[2017-07-05] MEDS: GLUCERNA SHAKE 237 ML CAN PO SCH ×2 (09:00→20:36)
[2017-07-05] MEDS: NA CHLORIDE 0.9% 1,000 ML IV SCH ×2 (09:00→15:40)
--- NOTE | 2017-07-05 13:13 | P.PN ---
Subjective Date of Service: 07/05/17 Primary Care Provider: None Chief Complaint: Unresponsiveness Patient seen and examined at bedside with RN. Chart reviewed. Currently C/o of dizziness and weakness. Worked with PT and was mod assist and walked with RW. Unsteady on the feet. Review of Systems 10-point ROS is otherwise unremarkable Physical Examination - Vital Signs Temperature: 99.1 F Blood Pressure: 125/60 Pulse: 65 Respirations: 16 Pulse Ox (%): 94 - Physical Exam General: Alert, In no apparent distress, Oriented x3 HEENT: Atraumatic Neck: Supple Respiratory: Clear to auscultation bilaterally, Normal air movement Cardiovascular: Regular rate/rhythm, Normal S1 S2 Gastrointestinal: Normal bowel sounds, No tenderness Musculoskeletal: No tenderness Integumentary: No rashes Neurological: Normal speech, Normal tone, Normal affect, Abnormal gait, Abnormal strength Lymphatics: No axilla or inguinal lymphadenopathy - Studies Medications List Reviewed: Yes Assessment & Plan - Problems (Diagnosis) (1) Generalized weakness Current Visit: Yes Status: Acute Plan: Generalized weakness with dizziness. -Orthostatic hypotension -PT/OT consulted. Will hold his BP meds if needed (2) Altered mental status Onset Date: 07/03/17 Current Visit: Yes Status: Resolved Plan: Now Alert and oriented x 3. Most likely 2/2 to heat stroke vs CVA vs Drug abuse -IV fluids. Also tolerating diet. -Neurology consulted. appreciated reccs -MRI negative for acute abnormality -ECHO and carotid negative as well. Qualifiers: Altered mental status type: somnolence Qualified Code(s): R40.0 - Somnolence (3) Stroke Onset Date: 07/03/17 Current Visit: Yes Status: Ruled-out Plan: Admitted with AMS. Now AAOx 3 -Head CT with 11mm Right Basal Infarct. MRI negative. -Neurology Consulted. Appreciated Reccs -PT/OT consulted -ASA and Statin -ECHO and Carotid negative thus far. Qualifiers: CVA mechanism: unspecified Qualified Code(s): I63.9 - Cerebral infarction, unspecified (4) Rhabdomyolysis Onset Date: 07/03/17 Current Visit: Yes Status: Acute Plan: Most likely from Dehydration and Heat Stroke -CK improved today -IV fluids and Cardiac Monitoring. -Repeat CK in the AM -Avoid Nephrotoxic agents at this time. Qualifiers: Rhabdomyolysis type: non-traumatic Qualified Code(s): M62.82 - Rhabdomyolysis (5) Hypoglycemia Onset Date: 07/03/17 Current Visit: Yes Status: Resolved Plan: Was found to have BS of 32. Pt is diabetic. Was given D50 in the field -Now BS > 100 -Placed on ISS for Diabetes (6) Diabetes Onset Date: 07/03/17 Current Visit: Yes Status: Chronic Qualifiers: Diabetes mellitus type: type 2 Diabetes mellitus rag inspector insulin use: without fpc use Diabetes mellitus complication status: without complication Qualified Code(s): E11.9 - Type 2 diabetes mellitus without complications
[2017-07-05] MEDS: ACETAMINOPHEN 500 MG TAB PO PRN (20:42)
[2017-07-06] MEDS: INSULIN -REGULAR HUMAN 50 UNIT/0.5 ML ML SQ SCH ×4 (07:30→21:22)
[2017-07-06] MEDS: GABAPENTIN 300 MG CAP PO SCH (08:32)
[2017-07-06] MEDS: ASPIRIN 81 MG CHEWABLE TABLET PO SCH (08:32)
[2017-07-06] MEDS: TAMSULOSIN 0.4 MG SR CAP PO SCH (08:32)
[2017-07-06] MEDS: GLUCERNA SHAKE 237 ML CAN PO SCH ×2 (08:33→21:23)
--- NOTE | 2017-07-06 12:22 | P.PN ---
Subjective Date of Service: 07/06/17 Primary Care Provider: None Chief Complaint: Unresponsiveness Patient seen and examined at bedside with RN. Chart reviewed. Currently doing well. States he does not have any money for walker. Worked with PT and was mod assist and walked with RW. Unsteady on the feet. Review of Systems General: As per HPI Physical Examination - Vital Signs Temperature: 97.4 F Blood Pressure: 136/63 Pulse: 69 Respirations: 17 Pulse Ox (%): 94 - Physical Exam General: Alert, In no apparent distress HEENT: Atraumatic, PERRLA, EOMI Neck: Supple, JVD not distended Respiratory: Clear to auscultation bilaterally, Normal air movement Cardiovascular: Regular rate/rhythm, Normal S1 S2 Gastrointestinal: Normal bowel sounds, No tenderness Musculoskeletal: No tenderness Integumentary: No rashes Neurological: Normal speech, Normal tone, Normal affect Lymphatics: No axilla or inguinal lymphadenopathy - Studies Medications List Reviewed: Yes Assessment & Plan - Problems (Diagnosis) (1) Generalized weakness Current Visit: Yes Status: Acute Plan: Generalized weakness with dizziness. -Orthostatic hypotension -PT/OT consulted. Will hold his BP meds if needed -Doing okay but still working with Walker and mod assist. (2) Altered mental status Onset Date: 07/03/17 Current Visit: Yes Status: Resolved Plan: Now Alert and oriented x 3. Most likely 2/2 to heat stroke vs CVA vs Drug abuse -IV fluids. Also tolerating diet. -Neurology consulted. appreciated reccs -MRI negative for acute abnormality -ECHO and carotid negative as well. Qualifiers: Altered mental status type: somnolence Qualified Code(s): R40.0 - Somnolence (3) Stroke Onset Date: 07/03/17 Current Visit: Yes Status: Ruled-out Plan: Admitted with AMS. Now AAOx 3 -Head CT with 11mm Right Basal Infarct. MRI negative. -Neurology Consulted. Appreciated Reccs -PT/OT consulted -ASA and Statin -ECHO and Carotid negative thus far. Qualifiers: CVA mechanism: unspecified Qualified Code(s): I63.9 - Cerebral infarction, unspecified (4) Rhabdomyolysis Onset Date: 07/03/17 Current Visit: Yes Status: Acute Plan: Most likely from Dehydration and Heat Stroke -CK improved today -IV fluids and Cardiac Monitoring. -Repeat CK in the AM -Avoid Nephrotoxic agents at this time. Qualifiers: Rhabdomyolysis type: non-traumatic Qualified Code(s): M62.82 - Rhabdomyolysis (5) Hypoglycemia Onset Date: 07/03/17 Current Visit: Yes Status: Resolved Plan: Was found to have BS of 32. Pt is diabetic. Was given D50 in the field -Now BS > 100 -Placed on ISS for Diabetes (6) Diabetes Onset Date: 07/03/17 Current Visit: Yes Status: Chronic Qualifiers: Diabetes mellitus type: type 2 Diabetes mellitus long term care pharmacist insulin use: without long term care pharmacist use Diabetes mellitus complication status: without complication Qualified Code(s): E11.9 - Type 2 diabetes mellitus without complications
[2017-07-07] MEDS: ACETAMINOPHEN 500 MG TAB PO PRN (00:41)
[2017-07-07] MEDS: INSULIN -REGULAR HUMAN 50 UNIT/0.5 ML ML SQ SCH ×2 (07:30→11:39)
[2017-07-07] MEDS: TAMSULOSIN 0.4 MG SR CAP PO SCH (08:03)
[2017-07-07] MEDS: ASPIRIN 81 MG CHEWABLE TABLET PO SCH (08:03)
[2017-07-07] MEDS: GABAPENTIN 300 MG CAP PO SCH (08:03)
[2017-07-07] MEDS: GLUCERNA SHAKE 237 ML CAN PO SCH (08:04)
--- NOTE | 2017-07-07 11:22 | P.DS ---
Admission Date: 07/02/17 Discharge Date: 07/07/17 Primary Care Provider: None Disposition: ROUTINE DISCHARGE Discharge Condition: GOOD Reason for Admission: Unresponsiveness Consultations: Dr Cortez - Problems (1) Generalized weakness Current Visit: Yes Status: Resolved (2) Altered mental status Onset Date: 07/03/17 Current Visit: Yes Status: Resolved Qualifiers: Altered mental status type: somnolence Qualified Code(s): R40.0 - Somnolence (3) Stroke Onset Date: 07/03/17 Current Visit: Yes Status: Ruled-out Qualifiers: CVA mechanism: unspecified Qualified Code(s): I63.9 - Cerebral infarction, unspecified (4) Rhabdomyolysis Onset Date: 07/03/17 Current Visit: Yes Status: Resolved Qualifiers: Rhabdomyolysis type: non-traumatic Qualified Code(s): M62.82 - Rhabdomyolysis (5) Hypoglycemia Onset Date: 07/03/17 Current Visit: Yes Status: Resolved (6) Diabetes Onset Date: 07/03/17 Current Visit: Yes Status: Chronic Qualifiers: Diabetes mellitus type: type 2 Diabetes mellitus director of knowledge management insulin use: without jail use Diabetes mellitus complication status: without complication Qualified Code(s): E11.9 - Type 2 diabetes mellitus without complications Brief History of Present Illness: This is a 67-year-old male with significant past medical history of hypertension and diabetes along with at least who came to the hospital after being found unresponsive in the back of the boat at the [facility] Parking lot. . The patient was found to have confusion, decreased mental status, decreased responsiveness. along with low BS at the Site by EMS. Pt received a dose of D50 and had his BS up to 200's. Patient became more responsive but still not acting right per EMS. Upon arrival patient was alert to person, place, event . However has no recall of the event. pt was worried about her dog and wanted to make sure he is okay. No other c/o. Denies having fever, chills, Nausea or vomiting. + for drug abuse and occ alcohol. No smoking. Hospital Course: Overall during the hospital stay patient remained stable Patient was initially admitted to the hospital after being found unresponsive in the parking lot behind his boat. At that time patient was found to be hypoglycemic. In the field patient was given sugar and his blood sugar came up to 150 after which he had no other issues with his blood sugar here in the hospital. Patient was also found to have rhabdomyolysis from laying the unresponsive in his boat. Patient's initial CK MB was elevated. Patient remained on IV fluids here in the hospital. His CK improved markedly and IV fluids were. Patient was advanced to a clear liquid diet tolerated his diet well. While here in the hospital patient also had a head CT done which was negative however an MRI of the brain was done which was concerning for acute ischemic stroke. Repeat MRI was negative. Patient was remained on aspirin here in the hospital. Lipitor was not started due to acute rhabdomyolysis. Dr Cortez was consulted. Agreed with the plan. Pt worked with PT here in the hospital and Was able to ambulate with Walker. Pt was given a Walker from the hospital and was discharged to [facility]. Pt was given ppx. F/U with Dr Cortez in 1 week. Vital Signs/Physical Exam: Temp Pulse Resp BP Pulse Ox 97.7 F 64 18 114/55 L 97 07/07/17 08:00 07/07/17 08:00 07/07/17 08:00 07/07/17 08:00 07/07/17 08:00 General: Alert, In no apparent distress HEENT: Atraumatic, PERRLA, EOMI Neck: Supple, JVD not distended Respiratory: Clear to auscultation bilaterally, Normal air movement Cardiovascular: Regular rate/rhythm, Normal S1 S2 Gastrointestinal: Normal bowel sounds, No tenderness Musculoskeletal: No tenderness Integumentary: No rashes Neurological: Normal speech, Normal tone, Normal affect Lymphatics: No axilla or inguinal lymphadenopathy Laboratory Data at Discharge: WBC 8.9 K/uL (4.3-10.9) 07/05/17 04:25 Hgb 11.6 g/dL (13.6-17.9) L 07/05/17 04:25 Hct 33.9 % (39.6-49.0) L 07/05/17 04:25 Plt Count 222 K/uL (152-406) 07/05/17 04:25 Sodium 134 mEq/L (135-145) L 07/05/17 04:25 Potassium 3.6 mEq/L (3.6-5.0) 07/05/17 04:25 BUN 12 mg/dL (6-20) 07/05/17 04:25 Creatinine 0.59 mg/dL (0.61-1.24) L 07/05/17 04:25 Glucose 194 mg/dL (65-120) H 07/05/17 04:25 Phosphorus 2.3 mg/dL (2.5-4.3) L 07/05/17 04:25 Magnesium 1.7 mg/dL (1.8-2.5) L 07/05/17 04:25 Total Bilirubin 0.7 mg/dL (0.3-1.2) 07/05/17 04:25 AST 105 IU/L (10-42) H 07/05/17 04:25 ALT 66 IU/L (10-60) H 07/05/17 04:25 Alkaline Phosphatase 70 IU/L (42-121) 07/05/17 04:25 Home Medications: Atorvastatin Calcium [Lipitor] 80 mg PO BEDTIME 07/02/17 Gabapentin [Neurontin*] 1 tab PO DAILY 07/02/17 Tamsulosin HCl 1 tab PO DAILY 07/02/17 traMADol HCL [Ultram*] 1 tab PO BID PRN 07/02/17 Aspirin Chewable [Aspirin Chewable*] 81 mg PO DAILY #30 tab.chew 07/07/17 Insulin Lispro [Humalog] 30 units SQ BID #5 cartridge 07/07/17 New Medications: Aspirin Chewable [Aspirin Chewable*] 81 mg PO DAILY #30 tab.chew Insulin Lispro [Humalog] 30 units SQ BID #5 cartridge Patient Discharge Instructions: Please f/u with PCP in 1 week post discharge. New medication. ASA 81mg daily. Continue taking all other medication as prescribed. Diet: Regular Activity: Ad ryan Followup: Kash Tello DO [ACTIVE - CAN ADMIT] - 1 Week
== END 2017-07-07 14:22 | disposition home or self-care (01) | DRG 558 ==
LOC: ER 14:17 → ERHOLD 17:42 → 2ND 20:58
PROVIDERS: ADMIT Family Medicine; ATTEND Family Medicine
DX: M62.82 Rhabdomyolysis (principal); E11.649 Type 2 diabetes mellitus with hypoglycemia without coma; I10 Essential (primary) hypertension
CPT/HCPCS: 36415; 70450; 70544; 70549; 70551; 70553; 71045; 74230; 80048; 80053; 80076; 80307; 80320; 81003; 81015; 82550; 82553; 82962; 83735; 84100; 84443; 85025; 87040; 93005; 93306; 93880; 94760; 96361; 96374; 97163; 99285; A9577; J7030